=== PATIENT | female | born 1960 | race African-American/Black ===

== ENCOUNTER 2019-10-12 05:52 | Day surgery (SDC) | payer OTHER ==
[2019-10-12] MEDS ORDERED: DEXAMETHASONE SODIUM PHOSPHATE 20 MG in SODIUM CHLORIDE 50 ML IVPB ONE (10:00)
[2019-10-12] MEDS ORDERED: PALONOSETRON HCL 0.25 MG/5 ML VIAL IVPUSH ONE (10:00)
[2019-10-12] MEDS ORDERED: WATER IV ONE (10:30)
[2019-10-12] MEDS ORDERED: OXALIPLATIN IV ONE (10:30)
[2019-10-12] MEDS ORDERED: DEXTROSE 5% IV ONE (10:30)
[2019-10-12 11:09] LABS: BASO % 0.4 % (0-2.0); EOS % 2.5 % (0-4.5); HEMATOCRIT 34.8 % (32.4-45.2); HEMOGLOBIN 11.1 GM/dL (10.7-15.3); LYMPH % 27.7 % (8-40); MCH 26.9 pg (25.7-33.7); MEAN PLT VOLUME 8.2 fl (7.5-11.1); MONO % 14.3 % (3.8-10.2); NEUT % 55.1 % (42.8-82.8); PLATELET COUNT 324 K/MM3 (134-434); RBC 4.14 M/mm3 (3.60-5.2); RDW 18.8 % (11.6-15.6); WHITE BLOOD COUNT 5.3 K/mm3 (4.0-10.0)
[2019-10-12 12:40] LABS: BLOOD UREA NITROGEN 7.8 mg/dL (7-18); CALCIUM 9.6 mg/dL (8.5-10.1); CREATININE 0.6 mg/dL (0.55-1.3); POTASSIUM 3.7 mmol/L (3.5-5.1)
[2019-10-12 12:42] LABS: MAGNESIUM 2.2 mg/dL (1.8-2.4)
[2019-10-12 13:39] LABS: ALBUMIN 3.3 g/dl (3.4-5.0); BILIRUBIN,DIRECT 0.1 mg/dL (0.0-0.2); BILIRUBIN,TOTAL 0.4 mg/dL (0.2-1); TOT PROT 7.7 g/dl (6.4-8.2)
[2019-10-12 16:10] VITALS: TEMP 97.8
[2019-10-12 16:13] VITALS: BP 152/81; PULSE 80
== END 2019-10-12 16:13 | disposition home or self-care (01) ==
LOC: JRADIR 05:52
PROVIDERS: ATTEND Nurse Practitioner Family
PROC: 02HV33Z Insertion of Infusion Device into Superior Vena Cava, Percutaneous Approach (ICD-10-PCS; principal; 2019-10-12)
PROC: B518ZZA Fluoroscopy of Superior Vena Cava, Guidance (ICD-10-PCS; 2019-10-12)
PROC: 3E04305 Introduction of Other Antineoplastic into Central Vein, Percutaneous Approach (ICD-10-PCS; 2019-10-12)
DX: Z51.11 Encounter for antineoplastic chemotherapy (principal); C18.9 Malignant neoplasm of colon, unspecified
CPT/HCPCS: 36415; 36569; 80048; 80076; 82977; 83735; 85025; J2469; J9263

== ENCOUNTER 2019-11-09 07:14 | Day surgery (SDC) | payer OTHER ==
[2019-11-09] MEDS ORDERED: amLODIPine BESYLATE 5 MG TABLET (FP) PO ONE (10:08)
[2019-11-09] MEDS ORDERED: PALONOSETRON HCL 0.25 MG/5 ML VIAL IVPUSH ONE (13:00)
[2019-11-09] MEDS ORDERED: DEXAMETHASONE INJECTION 20 MG in SODIUM CHLORIDE 50 ML IVPB ONE (13:00)
[2019-11-09] MEDS ORDERED: WATER IV ONE (13:30)
[2019-11-09] MEDS ORDERED: DEXTROSE 5% IV ONE (13:30)
[2019-11-09] MEDS ORDERED: OXALIPLATIN IV ONE (13:30)
[2019-11-09 13:34] LABS: BASO % 0.4 % (0-2.0); EOS % 2.3 % (0-4.5); HEMATOCRIT 34.1 % (32.4-45.2); HEMOGLOBIN 10.9 GM/dL (10.7-15.3); LYMPH % 37.1 % (8-40); MCH 26.8 pg (25.7-33.7); MEAN CELL VOLUME 83.8 fl (80-96); MEAN PLT VOLUME 8.4 fl (7.5-11.1); MONO % 12.2 % (3.8-10.2); PLATELET COUNT 306 K/MM3 (134-434); RBC 4.07 M/mm3 (3.60-5.2); RDW 19.1 % (11.6-15.6); WHITE BLOOD COUNT 5.9 K/mm3 (4.0-10.0)
[2019-11-09 14:15] LABS: BLOOD UREA NITROGEN 7.4 mg/dL (7-18); CALCIUM 9.3 mg/dL (8.5-10.1); POTASSIUM 3.7 mmol/L (3.5-5.1)
[2019-11-09 14:18] LABS: ALBUMIN 3.1 g/dl (3.4-5.0); BILIRUBIN,DIRECT 0.1 mg/dL (0.0-0.2); MAGNESIUM 2.2 mg/dL (1.8-2.4)
[2019-11-09 14:20] LABS: BILIRUBIN,TOTAL 0.4 mg/dL (0.2-1); CREATININE 0.5 mg/dL (0.55-1.3); TOT PROT 7.6 g/dl (6.4-8.2)
[2019-11-09 17:10] VITALS: TEMP 98
[2019-11-09 17:12] VITALS: BP 163/97; PULSE 78
== END 2019-11-09 17:14 | disposition home or self-care (01) ==
LOC: JRADIR 07:14
PROVIDERS: ATTEND Nurse Practitioner Family
PROC: 05HY33Z Insertion of Infusion Device into Upper Vein, Percutaneous Approach (ICD-10-PCS; principal; 2019-11-09)
DX: C18.6 Malignant neoplasm of descending colon (principal); C78.7 Secondary malignant neoplasm of liver and intrahepatic bile duct
CPT/HCPCS: 36415; 36569; 36573; 77001-TC-FY; 80048; 80076; 83735; 85025; C1751; J1100; J2469; J9263

== ENCOUNTER 2019-11-30 07:29 | Day surgery (SDC) | payer OTHER ==
[2019-11-30] MEDS ORDERED: PALONOSETRON HCL 0.25 MG/5 ML VIAL IVPUSH ONE (10:00)
[2019-11-30] MEDS ORDERED: DEXAMETHASONE SODIUM PHOSPHATE 20 MG in SODIUM CHLORIDE 50 ML IVPB ONE (10:00)
[2019-11-30] MEDS ORDERED: DEXTROSE 5% IV ONE ×2 (10:30→13:30)
[2019-11-30] MEDS ORDERED: WATER IV ONE ×2 (10:30→13:30)
[2019-11-30] MEDS ORDERED: OXALIPLATIN IV ONE ×2 (10:30→13:30)
[2019-11-30 10:51] LABS: BASO % 0.5 % (0-2.0); EOS % 1.9 % (0-4.5); HEMATOCRIT 33.9 % (32.4-45.2); HEMOGLOBIN 10.9 GM/dL (10.7-15.3); LYMPH % 30.4 % (8-40); MCH 27.4 pg (25.7-33.7); MCHC 32.1 g/dl (32.0-36.0); MEAN CELL VOLUME 85.2 fl (80-96); MEAN PLT VOLUME 8.7 fl (7.5-11.1); MONO % 18.8 % (3.8-10.2); NEUT % 48.4 % (42.8-82.8); PLATELET COUNT 218 K/MM3 (134-434); RBC 3.98 M/mm3 (3.60-5.2); WHITE BLOOD COUNT 5.9 K/mm3 (4.0-10.0)
[2019-11-30] MEDS ORDERED: amLODIPine BESYLATE 5 MG TABLET (FP) PO ONE ×2 (11:00→11:15)
[2019-11-30 11:12] LABS: ALBUMIN 3.2 g/dl (3.4-5.0); BILIRUBIN,DIRECT 0.1 mg/dL (0.0-0.2); BILIRUBIN,TOTAL 0.5 mg/dL (0.2-1); BLOOD UREA NITROGEN 8.7 mg/dL (7-18); CALCIUM 9.1 mg/dL (8.5-10.1); CREATININE 0.7 mg/dL (0.55-1.3); MAGNESIUM 2.3 mg/dL (1.8-2.4); POTASSIUM 4.1 mmol/L (3.5-5.1); TOT PROT 8.4 g/dl (6.4-8.2)
[2019-11-30 17:19] VITALS: BP 162/93; PULSE 74; TEMP 98.7
== END 2019-11-30 16:15 | disposition home or self-care (01) ==
LOC: JRADIR 07:29
PROVIDERS: ATTEND Nurse Practitioner Family
PROC: 02HV33Z Insertion of Infusion Device into Superior Vena Cava, Percutaneous Approach (ICD-10-PCS; principal; 2019-11-30)
PROC: B518ZZA Fluoroscopy of Superior Vena Cava, Guidance (ICD-10-PCS; 2019-11-30)
PROC: 3E04305 Introduction of Other Antineoplastic into Central Vein, Percutaneous Approach (ICD-10-PCS; 2019-11-30)
DX: Z51.11 Encounter for antineoplastic chemotherapy (principal); C18.9 Malignant neoplasm of colon, unspecified
CPT/HCPCS: 36415; 36569; 77001-TC-FY; 80048; 80076; 82378; 83735; 85025; C1751; J2469; J9263

== ENCOUNTER 2019-12-21 07:13 | Day surgery (SDC) | payer OTHER ==
[2019-12-21] MEDS ORDERED: DEXAMETHASONE SODIUM PHOSPHATE 20 MG in SODIUM CHLORIDE 50 ML IVPB ONE (10:00)
[2019-12-21] MEDS ORDERED: PALONOSETRON HCL 0.25 MG/5 ML VIAL IVPUSH ONE (10:00)
[2019-12-21] MEDS ORDERED: DEXTROSE 5% IV ONE (10:30)
[2019-12-21] MEDS ORDERED: WATER IV ONE (10:30)
[2019-12-21] MEDS ORDERED: OXALIPLATIN IV ONE (10:30)
[2019-12-21 11:39] LABS: BASO % 0.4 % (0-2.0); EOS % 1.4 % (0-4.5); HEMATOCRIT 35.2 % (32.4-45.2); HEMOGLOBIN 11.6 GM/dL (10.7-15.3); LYMPH % 29.3 % (8-40); MCH 28.8 pg (25.7-33.7); MEAN CELL VOLUME 87.4 fl (80-96); MEAN PLT VOLUME 8.8 fl (7.5-11.1); MONO % 15.1 % (3.8-10.2); NEUT % 53.8 % (42.8-82.8); PLATELET COUNT 255 K/MM3 (134-434); RBC 4.03 M/mm3 (3.60-5.2); RDW 19.1 % (11.6-15.6)
[2019-12-21 12:03] LABS: ALBUMIN 3.4 g/dl (3.4-5.0); BILIRUBIN,DIRECT 0.2 mg/dL (0.0-0.2); BILIRUBIN,TOTAL 0.7 mg/dL (0.2-1); BLOOD UREA NITROGEN 8.5 mg/dL (7-18); CALCIUM 9.2 mg/dL (8.5-10.1); CREATININE 0.7 mg/dL (0.55-1.3); MAGNESIUM 2.1 mg/dL (1.8-2.4); POTASSIUM 4.5 mmol/L (3.5-5.1); TOT PROT 8.7 g/dl (6.4-8.2)
[2019-12-21 17:32] VITALS: PULSE 78; TEMP 98.4
[2019-12-21 17:37] VITALS: BP 130/80
== END 2019-12-21 15:50 | disposition home or self-care (01) ==
LOC: JRADIR 07:13
PROVIDERS: ATTEND Internal Medicine Hematology & Oncology
DX: Z51.11 Encounter for antineoplastic chemotherapy (principal); C18.9 Malignant neoplasm of colon, unspecified
CPT/HCPCS: 36571; 77001; 96367; 96413; 96415; C1751; 36415; 36569; 80048; 80076; 83735; 85025; 87517; J2469; J9263

== ENCOUNTER 2020-01-16 06:52 | Day surgery (SDC) | payer OTHER ==
[2020-01-16] MEDS ORDERED: DEXAMETHASONE SODIUM PHOSPHATE 20 MG in SODIUM CHLORIDE 50 ML IVPB ONE (09:30)
[2020-01-16] MEDS ORDERED: PALONOSETRON HCL 0.25 MG/5 ML VIAL IVPUSH ONE (09:30)
[2020-01-16] MEDS ORDERED: DEXTROSE 5% IV ONE (10:00)
[2020-01-16] MEDS ORDERED: WATER IV ONE (10:00)
[2020-01-16] MEDS ORDERED: OXALIPLATIN IV ONE (10:00)
[2020-01-16 11:08] LABS: BASO % 0.6 % (0-2.0); EOS % 1.5 % (0-4.5); HEMATOCRIT 37.8 % (32.4-45.2); HEMOGLOBIN 12.4 GM/dL (10.7-15.3); LYMPH % 35.7 % (8-40); MCHC 32.8 g/dl (32.0-36.0); MEAN CELL VOLUME 88.6 fl (80-96); MEAN PLT VOLUME 8.8 fl (7.5-11.1); MONO % 16.1 % (3.8-10.2); NEUT % 46.1 % (42.8-82.8); PLATELET COUNT 205 K/MM3 (134-434); RBC 4.27 M/mm3 (3.60-5.2); RDW 19.5 % (11.6-15.6)
[2020-01-16 11:10] LABS: ALBUMIN 3.5 g/dl (3.4-5.0); BILIRUBIN,DIRECT 0.1 mg/dL (0.0-0.2); BILIRUBIN,TOTAL 0.5 mg/dL (0.2-1); BLOOD UREA NITROGEN 11.1 mg/dL (7-18); CALCIUM 9.3 mg/dL (8.5-10.1); CREATININE 0.8 mg/dL (0.55-1.3); MAGNESIUM 2.2 mg/dL (1.8-2.4); POTASSIUM 3.5 mmol/L (3.5-5.1); TOT PROT 9.2 g/dl (6.4-8.2)
[2020-01-16 17:09] VITALS: TEMP 98.2
[2020-01-16 17:17] VITALS: BP 162/84; PULSE 82
== END 2020-01-16 15:30 | disposition home or self-care (01) ==
LOC: JRADIR 06:52
PROVIDERS: ATTEND Internal Medicine Hematology & Oncology
PROC: 02HV33Z Insertion of Infusion Device into Superior Vena Cava, Percutaneous Approach (ICD-10-PCS; principal; 2020-01-16)
PROC: B518ZZA Fluoroscopy of Superior Vena Cava, Guidance (ICD-10-PCS; 2020-01-16)
PROC: 3E04305 Introduction of Other Antineoplastic into Central Vein, Percutaneous Approach (ICD-10-PCS; 2020-01-16)
DX: Z51.11 Encounter for antineoplastic chemotherapy (principal); C18.9 Malignant neoplasm of colon, unspecified
CPT/HCPCS: 36415; 36569; 36573; 77001-TC-FY; 80048; 80076; 82378; 83735; 85025; 96411; 96413; 96415; C1751; J2469; J9263

== ENCOUNTER 2020-02-06 07:17 | Day surgery (SDC) | payer OTHER ==
[2020-02-06] MEDS ORDERED: PALONOSETRON HCL 0.25 MG/5 ML VIAL IVPUSH ONE (10:00)
[2020-02-06] MEDS ORDERED: DEXAMETHASONE SODIUM PHOSPHATE 20 MG in SODIUM CHLORIDE 50 ML IVPB ONE (10:00)
[2020-02-06] MEDS ORDERED: amLODIPine BESYLATE 5 MG TABLET (FP) PO ONE (10:19)
[2020-02-06] MEDS ORDERED: WATER IV ONE (10:30)
[2020-02-06] MEDS ORDERED: DEXTROSE 5% IV ONE (10:30)
[2020-02-06] MEDS ORDERED: OXALIPLATIN IV ONE (10:30)
[2020-02-06 11:17] LABS: BASO % 0.3 % (0-2.0); EOS % 1.3 % (0-4.5); HEMATOCRIT 34.8 % (32.4-45.2); HEMOGLOBIN 11.6 GM/dL (10.7-15.3); LYMPH % 36.6 % (8-40); MCH 30.2 pg (25.7-33.7); MCHC 33.5 g/dl (32.0-36.0); MEAN CELL VOLUME 90.3 fl (80-96); MEAN PLT VOLUME 8.6 fl (7.5-11.1); MONO % 16.6 % (3.8-10.2); NEUT % 45.2 % (42.8-82.8); PLATELET COUNT 227 K/MM3 (134-434); RBC 3.85 M/mm3 (3.60-5.2); WHITE BLOOD COUNT 6.4 K/mm3 (4.0-10.0)
[2020-02-06 11:44] LABS: ALBUMIN 3.3 g/dl (3.4-5.0); BILIRUBIN,DIRECT 0.1 mg/dL (0.0-0.2); BILIRUBIN,TOTAL 0.6 mg/dL (0.2-1); BLOOD UREA NITROGEN 9.3 mg/dL (7-18); CALCIUM 8.9 mg/dL (8.5-10.1); CREATININE 0.7 mg/dL (0.55-1.3); MAGNESIUM 1.9 mg/dL (1.8-2.4); TOT PROT 9.2 g/dl (6.4-8.2)
[2020-02-06 17:07] VITALS: BP 167/68; PULSE 82; TEMP 98
== END 2020-02-06 15:30 | disposition home or self-care (01) ==
LOC: JRADIR 07:17 → JONCCHEMO 07:17 → JRADIR 15:30
PROVIDERS: ATTEND Internal Medicine Hematology & Oncology
PROC: 02HV33Z Insertion of Infusion Device into Superior Vena Cava, Percutaneous Approach (ICD-10-PCS; principal; 2020-02-06)
PROC: B518ZZA Fluoroscopy of Superior Vena Cava, Guidance (ICD-10-PCS; 2020-02-06)
PROC: 3E04305 Introduction of Other Antineoplastic into Central Vein, Percutaneous Approach (ICD-10-PCS; 2020-02-06)
DX: C18.9 Malignant neoplasm of colon, unspecified (principal)
CPT/HCPCS: 36415; 36569; 36573; 77001-TC-FY; 80048; 80076; 82378; 83735; 85025; 96367; 96375; 96413; 96415; C1751; J2469; J9263

== ENCOUNTER 2021-06-02 05:00 | Day surgery (SDC) | payer OTHER ==
[2021-05-29 12:38] VITALS: BMI 37.9
[2021-06-02 12:35] VITALS: TEMP 97.3
[2021-06-02 15:25] VITALS: BP 130/80; PULSE 72
== END 2021-06-02 16:20 | disposition home or self-care (01) ==
LOC: JRADIR 05:00
PROVIDERS: ATTEND Internal Medicine Hematology & Oncology
PROC: 0BBC3ZX Excision of Right Upper Lung Lobe, Percutaneous Approach, Diagnostic (ICD-10-PCS; principal; 2021-06-02)
DX: R91.8 Other nonspecific abnormal finding of lung field (principal); Z85.3 Personal history of malignant neoplasm of breast; Z85.038 Personal history of other malignant neoplasm of large intestine
CPT/HCPCS: 32408; 71045-TC-FY; 77012-TC; 88305-TC; 88341-TC; 88342-TC

== ENCOUNTER 2021-07-07 04:11 | Inpatient (IN) | payer OTHER ==
[2021-07-04 11:34] VITALS: BMI 37.9
[2021-07-07] MEDS ORDERED: LIDOCAINE HCL 1%, 10 MG/ML (20ML VIAL) ONE (07:10)
[2021-07-07] MEDS ORDERED: BUPIVACAINE HCL/PF 0.5% (5MG/ML) 10 ML VIAL ONE (07:11)
[2021-07-07] MEDS ORDERED: DEXMEDETOMIDINE HCL 200 MCG/2 ML IVPB ONE (07:47)
[2021-07-07] MEDS ORDERED: SODIUM CHLORIDE 0.9% P/F 10 ML VIAL IJ ONE (07:48)
[2021-07-07] MEDS ORDERED: BUPIVACAINE HCL/PF 0.25% (2.5MG/ML) 10 ML VIAL ONE ×2 (07:49→10:02)
[2021-07-07] MEDS ORDERED: BUPIVACAINE LIPOSOME/PF (EXPAREL) 266 MG/20 ML VIAL ONE (07:57)
[2021-07-07] MEDS ORDERED: MIDAZOLAM HCL 2 MG/2 ML SINGLE DOSE VIAL ONE (07:58)
[2021-07-07] MEDS ORDERED: PROPOFOL 20 ML ONE ×5 (08:02→10:11)
[2021-07-07] MEDS ORDERED: SUCCINYLCHOLINE CHLORIDE 200 MG/10 ML SYRINGE ONE (08:02)
[2021-07-07] MEDS ORDERED: ROCURONIUM BROMIDE 50 MG/5 ML SYRINGE ONE (08:02)
[2021-07-07] MEDS ORDERED: GLYCOPYRROLATE 0.2 MG/1 ML VIAL ONE ×2 (08:02→10:12)
[2021-07-07] MEDS ORDERED: ceFAZolin SODIUM 1 GM VIAL ONE (08:36)
[2021-07-07] MEDS ORDERED: ceFAZolin SODIUM 1 GM VIAL IVPB ONE (09:00)
[2021-07-07] MEDS ORDERED: BUPIVACAINE HCL/PF 0.25% (2.5MG/ML) 10 ML VIAL IJ ONE ×2 (09:45)
[2021-07-07] MEDS ORDERED: BUPIVACAINE LIPOSOME/PF (EXPAREL) 266 MG/20 ML VIAL NR ONE (09:46)
[2021-07-07] MEDS ORDERED: ONDANSETRON 4 MG/2 ML VIAL ONE (09:51)
[2021-07-07] MEDS ORDERED: NEOSTIGMINE METHYLSULFATE 0.5 MG/1 ML - 10 ML MDV ONE (10:12)
[2021-07-07] MEDS ORDERED: ARIPiprazole 2 MG TABLET PO SCH (12:15)
[2021-07-07] MEDS ORDERED: ALBUTEROL SO4 HFA INHALER IH PRN (12:15)
[2021-07-07] MEDS ORDERED: METOPROLOL TARTRATE 5 MG/5 ML VIAL IVPUSH PRN (12:18)
[2021-07-07] MEDS ORDERED: oxyCODONE HCL 5 MG TABLET PO PRN (12:38)
[2021-07-07] MEDS ORDERED: ONDANSETRON 4 MG/2 ML VIAL IVPUSH PRN (12:39)
[2021-07-07] MEDS: HEPARIN NA (PORCINE) 5,000 UNITS/ML 1ML VIAL SQ SCH ×2 (17:30→21:28)
[2021-07-07] MEDS: oxyCODONE HCL 5 MG TABLET PO PRN (17:44)
[2021-07-07] MEDS: DOCUSATE SODIUM 100 MG CAPSULE (FP) PO SCH ×2 (19:56→21:28)
[2021-07-07] MEDS: ACETAMINOPHEN 1000 MG/100 ML BAG IVPB SCH (20:13)
[2021-07-07] MEDS: MUPIROCIN 2% TOPICAL OINTMENT FOR DECOLONIZATION NS SCH (21:29)
[2021-07-07] MEDS ORDERED: SENNOSIDES 8.6MG TABLET (FP) PO SCH (22:00)
[2021-07-07] MEDS ORDERED: CHLORHEXIDINE GLUCONATE 4% CLEANSER FOR DECOLONIZATION TP SCH (22:00)
[2021-07-08] MEDS: ACETAMINOPHEN 1000 MG/100 ML BAG IVPB SCH ×2 (04:42→13:22)
[2021-07-08] MEDS: oxyCODONE HCL 5 MG TABLET PO PRN ×2 (05:06→09:50)
[2021-07-08] MEDS: HEPARIN NA (PORCINE) 5,000 UNITS/ML 1ML VIAL SQ SCH ×2 (06:43→13:23)
[2021-07-08] MEDS: DOCUSATE SODIUM 100 MG CAPSULE (FP) PO SCH ×2 (06:43→13:23)
[2021-07-08 07:03] LABS: BASO % 0.2 % (0-2.0); HEMATOCRIT 35.9 % (32.4-45.2); LYMPH % 11.3 % (8-40); MCH 29.2 pg (25.7-33.7); MCHC 33.3 g/dl (32.0-36.0); MEAN CELL VOLUME 87.5 fl (80-96); MEAN PLT VOLUME 8.2 fl (7.5-11.1); MONO % 8.2 % (3.8-10.2); NEUT % 80.3 % (42.8-82.8); PLATELET COUNT 313 10^3/uL (134-434); RBC 4.11 M/mm3 (3.60-5.2); RDW 15.8 % (11.6-15.6); WHITE BLOOD COUNT 12.8 K/mm3 (4.0-10.0)
[2021-07-08 07:30] LABS: ALBUMIN 3.2 g/dl (3.4-5.0); BLOOD UREA NITROGEN 12.3 mg/dL (7-18); CALCIUM 9.1 mg/dL (8.5-10.1); MAGNESIUM 2.2 mg/dL (1.8-2.4)
[2021-07-08 07:33] LABS: CREATININE 0.7 mg/dL (0.55-1.3); PHOSPHOROUS 3.6 mg/dL (2.5-4.9)
[2021-07-08 07:35] LABS: BILIRUBIN,TOTAL 0.7 mg/dL (0.2-1); TOT PROT 7.4 g/dl (6.4-8.2)
[2021-07-08] MEDS: MUPIROCIN 2% TOPICAL OINTMENT FOR DECOLONIZATION NS SCH (09:49)
[2021-07-08] MEDS ORDERED: CHLORTHALIDONE 25 MG TABLET PO SCH (10:00)
[2021-07-08] MEDS ORDERED: amLODIPine BESYLATE 5 MG TABLET (FP) PO SCH (10:00)
[2021-07-08] MEDS ORDERED: LOSARTAN POTASSIUM 50 MG TABLET PO SCH (10:00)
[2021-07-08] MEDS ORDERED: CHOLECALCIFEROL (VIT D3) 1,000 UNIT (25 MCG) TABLET PO SCH (10:00)
[2021-07-08] MEDS ORDERED: ATENOLOL 50 MG TABLET (FP) PO SCH (10:00)
[2021-07-08 14:51] VITALS: TEMP 98.6
[2021-07-08 20:15] VITALS: BP 125/69; PULSE 74
== END 2021-07-08 20:28 | disposition home or self-care (01) | DRG 120 ==
LOC: J2C 04:11 → JICU 14:05
PROVIDERS: ADMIT Student in an Organized Health Care Education/Training Program; ATTEND Student in an Organized Health Care Education/Training Program
PROC: 3E0T3BZ Introduction of Anesthetic Agent into Peripheral Nerves and Plexi, Percutaneous Approach (ICD-10-PCS; 2021-07-07)
PROC: 0JH63XZ Insertion of Tunneled Vascular Access Device into Chest Subcutaneous Tissue and Fascia, Percutaneous Approach (ICD-10-PCS; 2021-07-07)
PROC: 0W9940Z Drainage of Right Pleural Cavity with Drainage Device, Percutaneous Endoscopic Approach (ICD-10-PCS; 2021-07-07)
PROC: 05HN33Z Insertion of Infusion Device into Left Internal Jugular Vein, Percutaneous Approach (ICD-10-PCS; 2021-07-07)
PROC: 0BBC4ZZ Excision of Right Upper Lung Lobe, Percutaneous Endoscopic Approach (ICD-10-PCS; principal; 2021-07-07 08:00)
PROC: 0BBF4ZZ Excision of Right Lower Lung Lobe, Percutaneous Endoscopic Approach (ICD-10-PCS; 2021-07-07 08:00)
PROC: 0WP9X0Z Removal of Drainage Device from Right Pleural Cavity, External Approach (ICD-10-PCS; 2021-07-08)
DX: C78.01 Secondary malignant neoplasm of right lung (principal); C18.9 Malignant neoplasm of colon, unspecified; I10 Essential (primary) hypertension; F32.A Depression, unspecified
CPT/HCPCS: 36415; 71045-TC-FY; 76000-TC-FY; 80053; 83735; 84100; 85025; 86850; 86900; 86901; 88307-TC; 88331-TC; 94010; 94760; 97116-GP; 97162-GP; J1644

== ENCOUNTER 2021-08-04 07:13 | Day surgery (SDC) | payer OTHER ==
[2021-08-04] MEDS ORDERED: SODIUM CHLORIDE 250 ML IV ONE (09:00)
[2021-08-04 09:06] LABS: BASO % 0.7 % (0-2.0); EOS % 3.1 % (0-4.5); HEMOGLOBIN 12.9 GM/dL (10.7-15.3); LYMPH % 30.7 % (8-40); MCH 30.4 pg (25.7-33.7); MEAN CELL VOLUME 89.3 fl (80-96); MEAN PLT VOLUME 8.5 fl (7.5-11.1); MONO % 9.4 % (3.8-10.2); NEUT % 56.1 % (42.8-82.8); RBC 4.26 M/mm3 (3.60-5.2); RDW 15.8 % (11.6-15.6); WHITE BLOOD COUNT 7.6 K/mm3 (4.0-10.0)
[2021-08-04 09:07] LABS: PLATELET COUNT 215 10^3/uL (134-434)
[2021-08-04 09:21] LABS: CALCIUM 9.2 mg/dL (8.5-10.1)
[2021-08-04 09:22] LABS: ALBUMIN 3.2 g/dl (3.4-5.0); BLOOD UREA NITROGEN 14.5 mg/dL (7-18); MAGNESIUM 2.2 mg/dL (1.8-2.4)
[2021-08-04 09:25] LABS: BILIRUBIN,DIRECT 0.1 mg/dL (0.0-0.2); CREATININE 0.7 mg/dL (0.55-1.3)
[2021-08-04 09:26] LABS: BILIRUBIN,TOTAL 0.9 mg/dL (0.2-1)
[2021-08-04 09:27] LABS: TOT PROT 7.9 g/dl (6.4-8.2)
[2021-08-04] MEDS ORDERED: PALONOSETRON HCL 0.25 MG/5 ML VIAL IVPUSH ONE (09:30)
[2021-08-04] MEDS ORDERED: DEXAMETHASONE SODIUM PHOSPHATE 10 MG in SODIUM CHLORIDE 50 ML IVPB ONE (09:30)
[2021-08-04] MEDS ORDERED: ATROPINE SO4 0.4 MG/1 ML VIAL IVPUSH ONE (09:30)
[2021-08-04 09:49] LABS: PLATELET ESTIMATE ADEQUATE
[2021-08-04] MEDS ORDERED: LEUCOVORIN INJECTION - 856 MG in DEXTROSE 5%-WATER - 250 ML IVPB ONE (10:00)
[2021-08-04] MEDS ORDERED: WATER IVPB ONE (10:00)
[2021-08-04] MEDS ORDERED: DEXTROSE 5% IVPB ONE (10:00)
[2021-08-04] MEDS ORDERED: IRINOTECAN HCL IVPB ONE (10:00)
[2021-08-04] MEDS ORDERED: FLUOROURACIL 2,500 MG/50 ML VIAL IVPUSH ONE (11:30)
[2021-08-04] MEDS ORDERED: SODIUM CHLORIDE CP ONE (11:45)
[2021-08-04] MEDS ORDERED: FLUOROURACIL CP ONE (11:45)
[2021-08-04 15:41] VITALS: BP 157/80; PULSE 72; TEMP 98.8
[2021-08-04] MEDS ORDERED: PORTA CATH FLUSH 10 ML IVPUSH PRN (16:22)
== END 2021-08-04 14:15 | disposition home or self-care (01) ==
LOC: JONCCHEMO 07:13
PROVIDERS: ATTEND Internal Medicine Hematology & Oncology
DX: Z51.11 Encounter for antineoplastic chemotherapy (principal); C18.9 Malignant neoplasm of colon, unspecified
CPT/HCPCS: 36415; 80048; 80076; 82378; 83735; 85025; 86704; 86705; 87340; 87517; 96367; 96375; 96413; G0498; J2469; J9206

== ENCOUNTER 2021-08-06 07:58 | Day surgery (SDC) | payer OTHER ==
[2021-08-06] MEDS ORDERED: D5-1/2NS+40 MEQ KCL - 20 MEQ/500 ML INFUS.BAG IV ONE (10:00)
[2021-08-06 17:42] VITALS: BP 134/72; PULSE 67; TEMP 98.8
[2021-08-06] MEDS ORDERED: PORTA CATH FLUSH 10 ML IVPUSH PRN (17:42)
== END 2021-08-06 14:30 | disposition home or self-care (01) ==
LOC: JONCCHEMO 07:58
PROVIDERS: ATTEND Internal Medicine Hematology & Oncology
PROC: 3E0437Z Introduction of Electrolytic and Water Balance Substance into Central Vein, Percutaneous Approach (ICD-10-PCS; principal; 2021-08-06)
DX: C18.9 Malignant neoplasm of colon, unspecified (principal); Z76.89 Persons encountering health services in other specified circumstances
CPT/HCPCS: 96360; 96361

== ENCOUNTER 2021-08-18 06:34 | Day surgery (SDC) | payer OTHER ==
[2021-08-18 08:42] LABS: BASO % 0.7 % (0-2.0); EOS % 2.3 % (0-4.5); HEMATOCRIT 37.1 % (32.4-45.2); HEMOGLOBIN 12.5 GM/dL (10.7-15.3); LYMPH % 34.2 % (8-40); MCH 29.8 pg (25.7-33.7); MCHC 33.8 g/dl (32.0-36.0); MEAN CELL VOLUME 88.1 fl (80-96); MEAN PLT VOLUME 7.6 fl (7.5-11.1); MONO % 10.5 % (3.8-10.2); NEUT % 52.3 % (42.8-82.8); PLATELET COUNT 261 10^3/uL (134-434); RBC 4.21 M/mm3 (3.60-5.2); RDW 15.4 % (11.6-15.6); WHITE BLOOD COUNT 5.3 K/mm3 (4.0-10.0)
[2021-08-18 08:59] LABS: CALCIUM 9.3 mg/dL (8.5-10.1)
[2021-08-18 09:00] LABS: ALBUMIN 3.4 g/dl (3.4-5.0); MAGNESIUM 2.3 mg/dL (1.8-2.4)
[2021-08-18] MEDS ORDERED: SODIUM CHLORIDE 250 ML IV ONE (09:00)
[2021-08-18 09:03] LABS: BILIRUBIN,DIRECT 0.1 mg/dL (0.0-0.2); CREATININE 0.7 mg/dL (0.55-1.3)
[2021-08-18 09:05] LABS: BILIRUBIN,TOTAL 0.4 mg/dL (0.2-1); TOT PROT 7.7 g/dl (6.4-8.2)
[2021-08-18] MEDS ORDERED: DEXAMETHASONE SODIUM PHOSPHATE 10 MG in SODIUM CHLORIDE 50 ML IVPB ONE (09:30)
[2021-08-18] MEDS ORDERED: ATROPINE SO4 0.4 MG/1 ML VIAL IVPUSH ONE (09:30)
[2021-08-18] MEDS ORDERED: PALONOSETRON HCL 0.25 MG/5 ML VIAL IVPUSH ONE (09:30)
[2021-08-18] MEDS ORDERED: LEUCOVORIN INJECTION - 852 MG in DEXTROSE 5%-WATER - 250 ML IVPB ONE (10:00)
[2021-08-18] MEDS ORDERED: IRINOTECAN HCL 380 MG in DEXTROSE 5%-WATER - 500 ML IVPB ONE (10:00)
[2021-08-18] MEDS ORDERED: LIDOCAINE 2.5%/PRILOCAINE 2.5% 30 GRAM TUBE TP ONE (10:02)
[2021-08-18] MEDS ORDERED: FLUOROURACIL 2,500 MG/50 ML VIAL IVPUSH ONE (11:30)
[2021-08-18] MEDS ORDERED: FLUOROURACIL 5,100 MG in SODIUM CHLORIDE 3.8 ML CP ONE (11:45)
[2021-08-18 18:07] VITALS: TEMP 99
[2021-08-18 18:16] VITALS: BP 147/78; PULSE 68
[2021-08-18] MEDS ORDERED: PORTA CATH FLUSH 10 ML IVPUSH PRN (18:16)
== END 2021-08-18 13:45 | disposition home or self-care (01) ==
LOC: JONCCHEMO 06:34
PROVIDERS: ATTEND Internal Medicine Hematology & Oncology
PROC: 3E04305 Introduction of Other Antineoplastic into Central Vein, Percutaneous Approach (ICD-10-PCS; principal; 2021-08-18)
PROC: 3E043GC Introduction of Other Therapeutic Substance into Central Vein, Percutaneous Approach (ICD-10-PCS; 2021-08-18)
PROC: 3E0437Z Introduction of Electrolytic and Water Balance Substance into Central Vein, Percutaneous Approach (ICD-10-PCS; 2021-08-18)
DX: Z51.11 Encounter for antineoplastic chemotherapy (principal); C18.9 Malignant neoplasm of colon, unspecified
CPT/HCPCS: 36415; 80048; 80076; 83735; 85025; 96368; 96375; 96413; G0498; J2469; J9206

== ENCOUNTER 2021-08-20 06:18 | Day surgery (SDC) | payer OTHER ==
[~2021-08-20 06:18] MED LIST: LIDOCAINE 2.5%/PRILOCAINE 2.5% 30 GRAM TUBE TP ONE
[2021-08-20] MEDS ORDERED: D5-1/2NS+40 MEQ KCL - 20 MEQ/500 ML INFUS.BAG IV ONE (10:00)
[2021-08-20 15:01] VITALS: BP 154/76; PULSE 69; TEMP 98.9
[2021-08-20] MEDS ORDERED: PORTA CATH FLUSH 10 ML IVPUSH PRN (15:01)
== END 2021-08-20 12:10 | disposition home or self-care (01) ==
LOC: JONCNONCHE 06:18
PROVIDERS: ATTEND Internal Medicine Hematology & Oncology
PROC: 3E0437Z Introduction of Electrolytic and Water Balance Substance into Central Vein, Percutaneous Approach (ICD-10-PCS; principal; 2021-08-20)
DX: C18.9 Malignant neoplasm of colon, unspecified (principal); Z76.89 Persons encountering health services in other specified circumstances
CPT/HCPCS: 96360; 96361

== ENCOUNTER 2021-09-01 07:10 | Day surgery (SDC) | payer OTHER ==
[2021-09-01 08:52] LABS: BASO % 0.4 % (0-2.0); EOS % 1.6 % (0-4.5); HEMATOCRIT 37.3 % (32.4-45.2); HEMOGLOBIN 12.6 GM/dL (10.7-15.3); LYMPH % 34.1 % (8-40); MCH 29.9 pg (25.7-33.7); MCHC 33.7 g/dl (32.0-36.0); MEAN CELL VOLUME 88.5 fl (80-96); MEAN PLT VOLUME 7.4 fl (7.5-11.1); MONO % 11.6 % (3.8-10.2); NEUT % 52.3 % (42.8-82.8); PLATELET COUNT 230 10^3/uL (134-434); RBC 4.21 M/mm3 (3.60-5.2); RDW 15.7 % (11.6-15.6); WHITE BLOOD COUNT 5.1 K/mm3 (4.0-10.0)
[2021-09-01] MEDS ORDERED: SODIUM CHLORIDE 250 ML IV ONE (09:00)
[2021-09-01 09:14] LABS: ALBUMIN 3.4 g/dl (3.4-5.0); BLOOD UREA NITROGEN 12.5 mg/dL (7-18); CALCIUM 9.3 mg/dL (8.5-10.1); MAGNESIUM 2.1 mg/dL (1.8-2.4)
[2021-09-01 09:17] LABS: BILIRUBIN,DIRECT 0.2 mg/dL (0.0-0.2); CREATININE 0.6 mg/dL (0.55-1.3)
[2021-09-01 09:19] LABS: BILIRUBIN,TOTAL 0.5 mg/dL (0.2-1); TOT PROT 7.6 g/dl (6.4-8.2)
[2021-09-01] MEDS ORDERED: ATROPINE SO4 0.4 MG/1 ML VIAL IVPUSH ONE (09:30)
[2021-09-01] MEDS ORDERED: DEXAMETHASONE SODIUM PHOSPHATE 10 MG in SODIUM CHLORIDE 50 ML IVPB ONE (09:30)
[2021-09-01] MEDS ORDERED: PALONOSETRON HCL 0.25 MG/5 ML VIAL IVPUSH ONE (09:30)
[2021-09-01] MEDS ORDERED: LEUCOVORIN INJECTION - 852 MG in DEXTROSE 5%-WATER - 250 ML IVPB ONE (10:00)
[2021-09-01] MEDS ORDERED: IRINOTECAN HCL 380 MG in DEXTROSE 5%-WATER - 500 ML IVPB ONE (10:00)
[2021-09-01] MEDS ORDERED: FLUOROURACIL 2,500 MG/50 ML VIAL IVPUSH ONE (11:30)
[2021-09-01] MEDS ORDERED: FLUOROURACIL 5,100 MG in SODIUM CHLORIDE 3.8 ML CP ONE (11:45)
[2021-09-01 18:58] VITALS: BP 152/86; PULSE 75; TEMP 99.2
[2021-09-01] MEDS ORDERED: PORTA CATH FLUSH 10 ML IVPUSH PRN (18:58)
== END 2021-09-01 14:30 | disposition home or self-care (01) ==
LOC: JONCCHEMO 07:10
PROVIDERS: ATTEND Internal Medicine Hematology & Oncology
DX: Z51.11 Encounter for antineoplastic chemotherapy (principal); C18.9 Malignant neoplasm of colon, unspecified
CPT/HCPCS: 36415; 80048; 80076; 82378; 83735; 85025; 96367; 96411; 96413; G0498; J2469; J9206

== ENCOUNTER 2021-09-03 06:16 | Day surgery (SDC) | payer OTHER ==
[2021-09-03] MEDS ORDERED: D5-1/2NS+40 MEQ KCL - 20 MEQ/500 ML INFUS.BAG IV ONE (09:00)
[2021-09-03] MEDS ORDERED: PORTA CATH FLUSH 10 ML IVPUSH PRN (13:28)
[2021-09-03 13:29] VITALS: BP 143/72; PULSE 74; TEMP 98.9
== END 2021-09-03 12:40 | disposition home or self-care (01) ==
LOC: JONCCHEMO 06:16
PROVIDERS: ATTEND Internal Medicine Hematology & Oncology
PROC: 3E0437Z Introduction of Electrolytic and Water Balance Substance into Central Vein, Percutaneous Approach (ICD-10-PCS; principal; 2021-09-03)
DX: C18.9 Malignant neoplasm of colon, unspecified (principal); Z76.89 Persons encountering health services in other specified circumstances
CPT/HCPCS: 96360; 96361

== ENCOUNTER 2021-09-15 06:18 | Day surgery (SDC) | payer OTHER ==
[2021-09-15 08:51] LABS: BASO % 0.5 % (0-2.0); EOS % 1.4 % (0-4.5); HEMOGLOBIN 11.9 GM/dL (10.7-15.3); MCH 30.1 pg (25.7-33.7); MCHC 33.9 g/dl (32.0-36.0); MEAN CELL VOLUME 88.6 fl (80-96); MEAN PLT VOLUME 7.3 fl (7.5-11.1); MONO % 12.1 % (3.8-10.2); PLATELET COUNT 197 10^3/uL (134-434); RBC 3.95 M/mm3 (3.60-5.2); RDW 15.9 % (11.6-15.6); WHITE BLOOD COUNT 4.9 K/mm3 (4.0-10.0)
[2021-09-15] MEDS ORDERED: SODIUM CHLORIDE 250 ML IV ONE (09:00)
[2021-09-15 09:14] LABS: CALCIUM 9.1 mg/dL (8.5-10.1)
[2021-09-15 09:15] LABS: ALBUMIN 3.4 g/dl (3.4-5.0); BLOOD UREA NITROGEN 10.7 mg/dL (7-18); MAGNESIUM 2.4 mg/dL (1.8-2.4)
[2021-09-15 09:18] LABS: BILIRUBIN,DIRECT 0.2 mg/dL (0.0-0.2)
[2021-09-15 09:19] LABS: BILIRUBIN,TOTAL 0.8 mg/dL (0.2-1); TOT PROT 7.3 g/dl (6.4-8.2)
[2021-09-15 09:23] LABS: CREATININE 0.7 mg/dL (0.55-1.3)
[2021-09-15] MEDS ORDERED: PALONOSETRON HCL 0.25 MG/5 ML VIAL IVPUSH ONE (09:30)
[2021-09-15] MEDS ORDERED: DEXAMETHASONE SODIUM PHOSPHATE 10 MG in SODIUM CHLORIDE 50 ML IVPB ONE (09:30)
[2021-09-15] MEDS ORDERED: ATROPINE SO4 0.4 MG/1 ML VIAL IVPUSH ONE (09:30)
[2021-09-15] MEDS ORDERED: IRINOTECAN HCL 380 MG in DEXTROSE 5%-WATER - 500 ML IVPB ONE (10:00)
[2021-09-15] MEDS ORDERED: LEUCOVORIN INJECTION - 852 MG in DEXTROSE 5%-WATER - 250 ML IVPB ONE (10:00)
[2021-09-15 10:13] VITALS: TEMP 99
[2021-09-15] MEDS ORDERED: FLUOROURACIL 2,500 MG/50 ML VIAL IVPUSH ONE (11:30)
[2021-09-15] MEDS ORDERED: FLUOROURACIL 5,100 MG in SODIUM CHLORIDE 3.8 ML CP ONE (11:45)
[2021-09-15 15:45] VITALS: BP 136/73; PULSE 66
== END 2021-09-15 14:20 | disposition home or self-care (01) ==
LOC: JONCCHEMO 06:18
PROVIDERS: ATTEND Internal Medicine Hematology & Oncology
DX: Z51.11 Encounter for antineoplastic chemotherapy (principal); C18.9 Malignant neoplasm of colon, unspecified
CPT/HCPCS: 36415; 80048; 80076; 83735; 85025; 96367; 96375; 96411; 96413; G0498; J2469; J9206

== ENCOUNTER 2021-09-17 07:05 | Day surgery (SDC) | payer OTHER ==
[2021-09-17] MEDS ORDERED: D5-1/2NS+40 MEQ KCL - 20 MEQ/500 ML INFUS.BAG IV ONE (10:00)
[2021-09-17 16:50] VITALS: BP 130/70; PULSE 73; TEMP 98.5
[2021-09-17] MEDS ORDERED: PORTA CATH FLUSH 10 ML IVPUSH PRN (16:53)
== END 2021-09-17 12:30 | disposition home or self-care (01) ==
LOC: JONCNONCHE 07:05
PROVIDERS: ATTEND Internal Medicine Hematology & Oncology
PROC: 3E0437Z Introduction of Electrolytic and Water Balance Substance into Central Vein, Percutaneous Approach (ICD-10-PCS; principal; 2021-09-17)
DX: C18.9 Malignant neoplasm of colon, unspecified (principal); Z76.89 Persons encountering health services in other specified circumstances
CPT/HCPCS: 96360; 96361

== ENCOUNTER 2021-09-29 07:46 | Day surgery (SDC) | payer OTHER ==
[2021-09-29] MEDS ORDERED: SODIUM CHLORIDE 250 ML IV ONE (09:00)
[2021-09-29] MEDS ORDERED: DEXAMETHASONE SODIUM PHOSPHATE 10 MG in SODIUM CHLORIDE 50 ML IVPB ONE (09:30)
[2021-09-29] MEDS ORDERED: PALONOSETRON HCL 0.25 MG/5 ML VIAL IVPUSH ONE (09:30)
[2021-09-29] MEDS ORDERED: ATROPINE SO4 0.4 MG/1 ML VIAL IVPUSH ONE (09:30)
[2021-09-29 09:47] LABS: BASO % 0.6 % (0-2.0); EOS % 2.3 % (0-4.5); HEMATOCRIT 34.1 % (32.4-45.2); HEMOGLOBIN 11.2 GM/dL (10.7-15.3); LYMPH % 38.6 % (8-40); MCH 29.4 pg (25.7-33.7); MCHC 32.9 g/dl (32.0-36.0); MEAN CELL VOLUME 89.3 fl (80-96); MEAN PLT VOLUME 7.7 fl (7.5-11.1); MONO % 12.3 % (3.8-10.2); NEUT % 46.2 % (42.8-82.8); PLATELET COUNT 196 10^3/uL (134-434); RBC 3.82 M/mm3 (3.60-5.2); RDW 16.5 % (11.6-15.6); WHITE BLOOD COUNT 4.8 K/mm3 (4.0-10.0)
[2021-09-29] MEDS ORDERED: IRINOTECAN HCL 380 MG in DEXTROSE 5%-WATER - 500 ML IVPB ONE (10:00)
[2021-09-29] MEDS ORDERED: LEUCOVORIN INJECTION - 852 MG in DEXTROSE 5%-WATER - 250 ML IVPB ONE (10:00)
[2021-09-29 10:13] LABS: ALBUMIN 3.3 g/dl (3.4-5.0); BLOOD UREA NITROGEN 12.3 mg/dL (7-18); CALCIUM 9.2 mg/dL (8.5-10.1); MAGNESIUM 2.4 mg/dL (1.8-2.4)
[2021-09-29 10:16] LABS: BILIRUBIN,DIRECT 0.1 mg/dL (0.0-0.2); CREATININE 0.7 mg/dL (0.55-1.3)
[2021-09-29 10:18] LABS: BILIRUBIN,TOTAL 0.5 mg/dL (0.2-1); TOT PROT 7.2 g/dl (6.4-8.2)
[2021-09-29] MEDS ORDERED: FLUOROURACIL 2,500 MG/50 ML VIAL IVPUSH ONE (11:30)
[2021-09-29] MEDS ORDERED: FLUOROURACIL 5,100 MG in SODIUM CHLORIDE 3.8 ML CP ONE (11:45)
[2021-09-29 14:11] VITALS: TEMP 98.6
[2021-09-29 15:15] VITALS: BP 153/83; PULSE 70
[2021-09-29] MEDS ORDERED: PORTA CATH FLUSH 10 ML IVPUSH PRN (15:15)
== END 2021-09-29 14:15 | disposition home or self-care (01) ==
LOC: JONCCHEMO 07:46
PROVIDERS: ATTEND Internal Medicine Hematology & Oncology
DX: Z51.11 Encounter for antineoplastic chemotherapy (principal); C18.9 Malignant neoplasm of colon, unspecified
CPT/HCPCS: 36415; 80048; 80076; 83735; 85025; 96375; 96411; 96413; G0498; J2469; J9206

== ENCOUNTER 2021-10-01 06:45 | Day surgery (SDC) | payer OTHER ==
[2021-10-01] MEDS ORDERED: DEXTROSE 5%-0.45% SALINE 500 ML IV ONE (10:00)
[2021-10-01 18:21] VITALS: BP 147/82; PULSE 78; TEMP 98.7
[2021-10-01] MEDS ORDERED: PORTA CATH FLUSH 10 ML IVPUSH PRN (18:22)
== END 2021-10-01 12:45 | disposition home or self-care (01) ==
LOC: JONCCHEMO 06:45
PROVIDERS: ATTEND Internal Medicine Hematology & Oncology
PROC: 3E0437Z Introduction of Electrolytic and Water Balance Substance into Central Vein, Percutaneous Approach (ICD-10-PCS; principal; 2021-10-01)
DX: C18.9 Malignant neoplasm of colon, unspecified (principal); Z76.89 Persons encountering health services in other specified circumstances
CPT/HCPCS: 96360; 96361

== ENCOUNTER 2021-10-14 06:27 | Day surgery (SDC) | payer OTHER ==
[2021-10-14 09:19] LABS: BASO % 0.7 % (0-2.0); EOS % 2.4 % (0-4.5); HEMATOCRIT 35.6 % (32.4-45.2); HEMOGLOBIN 12.1 GM/dL (10.7-15.3); MCH 30.4 pg (25.7-33.7); MCHC 33.9 g/dl (32.0-36.0); MEAN CELL VOLUME 89.5 fl (80-96); MEAN PLT VOLUME 7.8 fl (7.5-11.1); MONO % 15.9 % (3.8-10.2); PLATELET COUNT 208 10^3/uL (134-434); RBC 3.98 M/mm3 (3.60-5.2); WHITE BLOOD COUNT 4.5 K/mm3 (4.0-10.0)
[2021-10-14 09:20] LABS: CALCIUM 9.2 mg/dL (8.5-10.1)
[2021-10-14 09:22] LABS: ALBUMIN 3.4 g/dl (3.4-5.0); BLOOD UREA NITROGEN 12.6 mg/dL (7-18); MAGNESIUM 2.5 mg/dL (1.8-2.4)
[2021-10-14 09:24] LABS: CREATININE 0.7 mg/dL (0.55-1.3)
[2021-10-14 09:25] LABS: BILIRUBIN,DIRECT 0.1 mg/dL (0.0-0.2)
[2021-10-14 09:26] LABS: BILIRUBIN,TOTAL 0.6 mg/dL (0.2-1); TOT PROT 7.5 g/dl (6.4-8.2)
[2021-10-14 09:40] VITALS: BP 112/76; PULSE 76; TEMP 98.8
[2021-10-14] MEDS ORDERED: SODIUM CHLORIDE 250 ML IV ONE (10:00)
[2021-10-14] MEDS ORDERED: DEXAMETHASONE SODIUM PHOSPHATE 10 MG in SODIUM CHLORIDE 50 ML IVPB ONE (10:00)
[2021-10-14] MEDS ORDERED: ATROPINE SO4 0.4 MG/1 ML VIAL IVPUSH ONE (10:00)
[2021-10-14] MEDS ORDERED: PALONOSETRON HCL 0.25 MG/5 ML VIAL IVPUSH ONE (10:00)
[2021-10-14] MEDS ORDERED: LEUCOVORIN INJECTION - 852 MG in DEXTROSE 5%-WATER - 250 ML IVPB ONE (10:30)
[2021-10-14] MEDS ORDERED: IRINOTECAN HCL 380 MG in DEXTROSE 5%-WATER - 500 ML IVPB ONE (11:00)
[2021-10-14] MEDS ORDERED: FLUOROURACIL 5,000 MG/100 ML VIAL IVPUSH ONE (12:30)
[2021-10-14] MEDS ORDERED: FLUOROURACIL CP ONE (13:00)
[2021-10-14] MEDS ORDERED: SODIUM CHLORIDE CP ONE (13:00)
[2021-10-14] MEDS ORDERED: PORTA CATH FLUSH 10 ML IVPUSH PRN (16:27)
== END 2021-10-14 14:15 | disposition home or self-care (01) ==
LOC: JONCCHEMO 06:27
PROVIDERS: ATTEND Internal Medicine Hematology & Oncology
DX: Z51.11 Encounter for antineoplastic chemotherapy (principal); C18.6 Malignant neoplasm of descending colon; C78.00 Secondary malignant neoplasm of unspecified lung
CPT/HCPCS: 36415; 80048; 80076; 82378; 83735; 85025; 96366; 96367; 96375; 96411; 96413; G0498; J2469; J9206

== ENCOUNTER 2021-10-16 07:15 | Day surgery (SDC) | payer OTHER ==
[2021-10-16 09:52] VITALS: TEMP 98.5
[2021-10-16] MEDS ORDERED: POTASSIUM CHLORIDE 20 MEQ in DEXTROSE 5%-0.45% SALINE - 500 ML IVPB ONE (10:00)
[2021-10-16] MEDS ORDERED: PORTA CATH FLUSH 10 ML IVPUSH PRN ×2 (14:14→14:23)
[2021-10-16 14:15] VITALS: BP 142/85; PULSE 66
== END 2021-10-16 12:15 | disposition home or self-care (01) ==
LOC: JONCCHEMO 07:15
PROVIDERS: ATTEND Internal Medicine Hematology & Oncology
PROC: 3E043GC Introduction of Other Therapeutic Substance into Central Vein, Percutaneous Approach (ICD-10-PCS; principal; 2021-10-16)
DX: C18.6 Malignant neoplasm of descending colon (principal); C78.00 Secondary malignant neoplasm of unspecified lung; Z76.89 Persons encountering health services in other specified circumstances
CPT/HCPCS: 96365; 96366

== ENCOUNTER 2021-12-15 07:49 | Day surgery (SDC) | payer OTHER ==
[2021-12-15 09:08] LABS: BASO % 0.4 % (0-2.0); EOS % 1.9 % (0-4.5); HEMOGLOBIN 12.7 GM/dL (10.7-15.3); LYMPH % 31.1 % (8-40); MCH 30.7 pg (25.7-33.7); MCHC 34.3 g/dl (32.0-36.0); MEAN CELL VOLUME 89.5 fl (80-96); MONO % 10.3 % (3.8-10.2); NEUT % 56.3 % (42.8-82.8); PLATELET COUNT 295 10^3/uL (134-434); RBC 4.14 M/mm3 (3.60-5.2); WHITE BLOOD COUNT 7.7 K/mm3 (4.0-10.0)
[2021-12-15 09:37] LABS: CALCIUM 8.9 mg/dL (8.5-10.1)
[2021-12-15 09:38] LABS: ALBUMIN 3.4 g/dl (3.4-5.0); BLOOD UREA NITROGEN 14.6 mg/dL (7-18); MAGNESIUM 2.2 mg/dL (1.8-2.4)
[2021-12-15 09:40] LABS: BILIRUBIN,DIRECT 0.2 mg/dL (0.0-0.2)
[2021-12-15 09:41] LABS: CREATININE 0.7 mg/dL (0.55-1.3)
[2021-12-15 09:42] LABS: TOT PROT 7.8 g/dl (6.4-8.2)
[2021-12-15 09:43] LABS: BILIRUBIN,TOTAL 0.5 mg/dL (0.2-1)
[2021-12-15] MEDS ORDERED: ATROPINE SO4 0.4 MG/1 ML VIAL SQ ONE (10:00)
[2021-12-15] MEDS ORDERED: PALONOSETRON HCL 0.25 MG/5 ML VIAL IVPUSH ONE (10:00)
[2021-12-15] MEDS ORDERED: SODIUM CHLORIDE 250 ML IV ONE (10:00)
[2021-12-15] MEDS ORDERED: DEXAMETHASONE SODIUM PHOSPHATE 8 MG in SODIUM CHLORIDE 50 ML IVPB ONE (10:00)
[2021-12-15] MEDS ORDERED: SODIUM CHLORIDE IVPB ONE (10:30)
[2021-12-15] MEDS ORDERED: BEVACIZUMAB AWWB IVPB ONE (10:30)
[2021-12-15] MEDS ORDERED: LEUCOVORIN INJECTION - 848 MG in DEXTROSE 5%-WATER - 250 ML IVPB ONE (12:00)
[2021-12-15] MEDS ORDERED: IRINOTECAN HCL 380 MG in DEXTROSE 5%-WATER - 500 ML IVPB ONE (12:30)
[2021-12-15] MEDS ORDERED: FLUOROURACIL 2,500 MG/50 ML VIAL IVPUSH ONE (14:00)
[2021-12-15] MEDS ORDERED: SODIUM CHLORIDE CP ONE (14:30)
[2021-12-15] MEDS ORDERED: FLUOROURACIL CP ONE (14:30)
[2021-12-15 16:59] VITALS: RESP 18; TEMP 99
[2021-12-15] MEDS ORDERED: PORTA CATH FLUSH 10 ML IVPUSH PRN (17:31)
[2021-12-15 17:32] VITALS: BP 163/88; PULSE 65
== END 2021-12-15 16:30 | disposition home or self-care (01) ==
LOC: JONCCHEMO 07:49
PROVIDERS: ATTEND Internal Medicine Hematology & Oncology
DX: Z51.11 Encounter for antineoplastic chemotherapy (principal); C18.6 Malignant neoplasm of descending colon; C78.00 Secondary malignant neoplasm of unspecified lung
CPT/HCPCS: 36415; 80048; 80076; 82378; 83735; 84156; 85025; 96366; 96367; 96375; 96411; 96413; 96417; G0498; J2469; J9206; Q5107

== ENCOUNTER 2021-12-17 07:07 | Day surgery (SDC) | payer OTHER ==
[2021-12-17] MEDS ORDERED: D5-NS + 20 MEQ KCL - 10 MEQ/500 ML INFUS.BAG IV ONE (10:00)
[2021-12-17 14:22] VITALS: BP 155/84; PULSE 76; RESP 20; TEMP 97.2
[2021-12-17] MEDS ORDERED: PORTA CATH FLUSH 10 ML IVPUSH PRN (14:25)
== END 2021-12-17 14:25 | disposition home or self-care (01) ==
LOC: JONCCHEMO 07:07
PROVIDERS: ATTEND Internal Medicine Hematology & Oncology
PROC: 3E0437Z Introduction of Electrolytic and Water Balance Substance into Central Vein, Percutaneous Approach (ICD-10-PCS; principal; 2021-12-17)
DX: C18.6 Malignant neoplasm of descending colon (principal); C78.00 Secondary malignant neoplasm of unspecified lung; Z76.89 Persons encountering health services in other specified circumstances
CPT/HCPCS: 96360

== ENCOUNTER 2021-12-30 08:14 | Day surgery (SDC) | payer OTHER ==
[2021-12-30] MEDS ORDERED: SODIUM CHLORIDE 250 ML IV ONE (09:00)
[2021-12-30 09:27] LABS: ALBUMIN 3.3 g/dl (3.4-5.0); BLOOD UREA NITROGEN 11.3 mg/dL (7-18); MAGNESIUM 2.4 mg/dL (1.8-2.4)
[2021-12-30 09:30] LABS: BILIRUBIN,DIRECT 0.2 mg/dL (0.0-0.2); CREATININE 0.7 mg/dL (0.55-1.3)
[2021-12-30] MEDS ORDERED: PALONOSETRON HCL 0.25 MG/5 ML VIAL IVPUSH ONE (09:30)
[2021-12-30] MEDS ORDERED: ATROPINE SO4 0.4 MG/1 ML VIAL SQ ONE (09:30)
[2021-12-30] MEDS ORDERED: DEXAMETHASONE SODIUM PHOSPHATE 8 MG in SODIUM CHLORIDE 50 ML IVPB ONE (09:30)
[2021-12-30 09:31] LABS: TOT PROT 7.3 g/dl (6.4-8.2)
[2021-12-30 09:32] LABS: BILIRUBIN,TOTAL 0.6 mg/dL (0.2-1)
[2021-12-30 09:34] LABS: BASO % 0.6 % (0-2.0); EOS % 2.9 % (0-4.5); HEMATOCRIT 38.9 % (32.4-45.2); HEMOGLOBIN 13.3 GM/dL (10.7-15.3); LYMPH % 41.2 % (8-40); MCH 30.9 pg (25.7-33.7); MCHC 34.1 g/dl (32.0-36.0); MEAN CELL VOLUME 90.7 fl (80-96); MEAN PLT VOLUME 7.7 fl (7.5-11.1); NEUT % 45.3 % (42.8-82.8); PLATELET COUNT 235 10^3/uL (134-434); RBC 4.29 M/mm3 (3.60-5.2); RDW 17.4 % (11.6-15.6); WHITE BLOOD COUNT 5.2 K/mm3 (4.0-10.0)
[2021-12-30] MEDS ORDERED: SODIUM CHLORIDE IVPB ONE (10:00)
[2021-12-30] MEDS ORDERED: BEVACIZUMAB AWWB IVPB ONE (10:00)
[2021-12-30] MEDS ORDERED: IRINOTECAN HCL IVPB ONE (11:00)
[2021-12-30] MEDS ORDERED: DEXTROSE 5% IVPB ONE (11:00)
[2021-12-30] MEDS ORDERED: LEUCOVORIN INJECTION - 856 MG in DEXTROSE 5%-WATER - 250 ML IVPB ONE ×2 (11:00→13:00)
[2021-12-30] MEDS ORDERED: WATER IVPB ONE (11:00)
[2021-12-30] MEDS ORDERED: FLUOROURACIL 2,500 MG/50 ML VIAL IVPUSH ONE (12:30)
[2021-12-30] MEDS ORDERED: SODIUM CHLORIDE CP ONE (12:45)
[2021-12-30] MEDS ORDERED: FLUOROURACIL CP ONE (12:45)
[2021-12-30 17:22] VITALS: RESP 18; TEMP 98.7
[2021-12-30] MEDS ORDERED: PORTA CATH FLUSH 10 ML IVPUSH PRN (17:33)
[2021-12-30 17:41] VITALS: BP 157/79; PULSE 79
== END 2021-12-30 16:15 | disposition home or self-care (01) ==
LOC: JONCCHEMO 08:14
PROVIDERS: ATTEND Internal Medicine Hematology & Oncology
DX: Z51.11 Encounter for antineoplastic chemotherapy (principal); C18.6 Malignant neoplasm of descending colon; C78.00 Secondary malignant neoplasm of unspecified lung
CPT/HCPCS: 36415; 80048; 80076; 83735; 84156; 85025; 96366; 96367; 96375; 96411; 96413; 96417; G0498; J2469; J9206; Q5107

== ENCOUNTER 2022-01-01 07:23 | Day surgery (SDC) | payer OTHER ==
[2022-01-01 09:53] VITALS: RESP 18; TEMP 98.1
[2022-01-01] MEDS ORDERED: D5-NS + 40 MEQ KCL - 20 MEQ/500 ML INFUS.BAG IV ONE (10:00)
[2022-01-01 15:51] VITALS: BP 163/88; PULSE 71
[2022-01-01] MEDS ORDERED: PORTA CATH FLUSH 10 ML IVPUSH PRN (15:51)
== END 2022-01-01 15:00 | disposition home or self-care (01) ==
LOC: JONCCHEMO 07:23
PROVIDERS: ATTEND Internal Medicine Hematology & Oncology
PROC: 3E0437Z Introduction of Electrolytic and Water Balance Substance into Central Vein, Percutaneous Approach (ICD-10-PCS; principal; 2022-01-01)
DX: C18.6 Malignant neoplasm of descending colon (principal); C78.00 Secondary malignant neoplasm of unspecified lung; Z76.89 Persons encountering health services in other specified circumstances
CPT/HCPCS: 96360

== ENCOUNTER 2022-01-12 07:57 | Day surgery (SDC) | payer OTHER ==
[2022-01-12] MEDS ORDERED: SODIUM CHLORIDE 250 ML IV ONE (09:00)
[2022-01-12 09:03] LABS: BASO % 0.5 % (0-2.0); HEMATOCRIT 39.1 % (32.4-45.2); HEMOGLOBIN 13.3 GM/dL (10.7-15.3); LYMPH % 41.1 % (8-40); MCH 30.6 pg (25.7-33.7); MEAN PLT VOLUME 7.3 fl (7.5-11.1); MONO % 9.1 % (3.8-10.2); NEUT % 47.3 % (42.8-82.8); PLATELET COUNT 206 10^3/uL (134-434); RBC 4.35 M/mm3 (3.60-5.2); WHITE BLOOD COUNT 4.7 K/mm3 (4.0-10.0)
[2022-01-12 09:06] LABS: ALBUMIN 3.2 g/dl (3.4-5.0); BLOOD UREA NITROGEN 12.1 mg/dL (7-18); CALCIUM 8.8 mg/dL (8.5-10.1); MAGNESIUM 2.3 mg/dL (1.8-2.4)
[2022-01-12 09:09] LABS: BILIRUBIN,DIRECT 0.2 mg/dL (0.0-0.2); CREATININE 0.7 mg/dL (0.55-1.3)
[2022-01-12 09:11] LABS: BILIRUBIN,TOTAL 0.6 mg/dL (0.2-1); TOT PROT 7.4 g/dl (6.4-8.2)
[2022-01-12] MEDS ORDERED: DEXAMETHASONE SODIUM PHOSPHATE 8 MG in SODIUM CHLORIDE 50 ML IVPB ONE (09:30)
[2022-01-12] MEDS ORDERED: ATROPINE SO4 0.4 MG/1 ML VIAL SQ ONE (09:30)
[2022-01-12] MEDS ORDERED: PALONOSETRON HCL 0.25 MG/5 ML VIAL IVPUSH ONE (09:30)
[2022-01-12] MEDS ORDERED: BEVACIZUMAB AWWB IVPB ONE (10:00)
[2022-01-12] MEDS ORDERED: SODIUM CHLORIDE IVPB ONE (10:00)
[2022-01-12] MEDS ORDERED: IRINOTECAN HCL IVPB ONE (10:30)
[2022-01-12] MEDS ORDERED: DEXTROSE 5% IVPB ONE (10:30)
[2022-01-12] MEDS ORDERED: WATER IVPB ONE (10:30)
[2022-01-12] MEDS ORDERED: LEUCOVORIN INJECTION - 860 MG in DEXTROSE 5%-WATER - 250 ML IVPB ONE (10:30)
[2022-01-12] MEDS ORDERED: FLUOROURACIL 2,500 MG/50 ML VIAL IVPUSH ONE (12:30)
[2022-01-12] MEDS ORDERED: SODIUM CHLORIDE CP ONE (12:45)
[2022-01-12] MEDS ORDERED: FLUOROURACIL CP ONE (12:45)
[2022-01-12 17:05] VITALS: RESP 18
[2022-01-12 17:19] VITALS: BP 138/85; PULSE 75
[2022-01-12] MEDS ORDERED: PORTA CATH FLUSH 10 ML IVPUSH PRN (17:19)
[2022-01-12 17:23] VITALS: TEMP 98.6
== END 2022-01-12 14:40 | disposition home or self-care (01) ==
LOC: JONCCHEMO 07:57
PROVIDERS: ATTEND Internal Medicine Hematology & Oncology
PROC: 3E0437Z Introduction of Electrolytic and Water Balance Substance into Central Vein, Percutaneous Approach (ICD-10-PCS; principal; 2022-01-12)
DX: C18.6 Malignant neoplasm of descending colon (principal); C78.00 Secondary malignant neoplasm of unspecified lung; Z76.89 Persons encountering health services in other specified circumstances
CPT/HCPCS: 36415; 80048; 80076; 83735; 84156; 85025; 96360; G0498; J2469; J9206; Q5107

== ENCOUNTER 2022-01-14 09:48 | Day surgery (SDC) | payer OTHER ==
[2022-01-14] MEDS ORDERED: D5-NS + 40 MEQ KCL - 20 MEQ/500 ML INFUS.BAG IV ONE (10:00)
[2022-01-14 16:40] VITALS: BP 159/87; PULSE 75; RESP 20; TEMP 98.9
[2022-01-14] MEDS ORDERED: PORTA CATH FLUSH 10 ML IVPUSH PRN (16:40)
== END 2022-01-14 13:00 | disposition home or self-care (01) ==
LOC: JONCCHEMO 09:48
PROVIDERS: ATTEND Internal Medicine Hematology & Oncology
PROC: 3E0437Z Introduction of Electrolytic and Water Balance Substance into Central Vein, Percutaneous Approach (ICD-10-PCS; principal; 2022-01-14)
DX: Z76.89 Persons encountering health services in other specified circumstances (principal); C18.6 Malignant neoplasm of descending colon; C78.00 Secondary malignant neoplasm of unspecified lung
CPT/HCPCS: 96360; 96361

== ENCOUNTER 2022-01-26 08:02 | Day surgery (SDC) | payer OTHER ==
[2022-01-26 09:10] LABS: BASO % 0.8 % (0-2.0); EOS % 1.6 % (0-4.5); HEMATOCRIT 40.4 % (32.4-45.2); HEMOGLOBIN 13.6 GM/dL (10.7-15.3); LYMPH % 42.9 % (8-40); MCHC 33.6 g/dl (32.0-36.0); MEAN CELL VOLUME 89.3 fl (80-96); MEAN PLT VOLUME 7.4 fl (7.5-11.1); MONO % 11.8 % (3.8-10.2); NEUT % 42.9 % (42.8-82.8); PLATELET COUNT 216 10^3/uL (134-434); RBC 4.52 M/mm3 (3.60-5.2); WHITE BLOOD COUNT 4.8 K/mm3 (4.0-10.0)
[2022-01-26 09:29] LABS: CALCIUM 8.9 mg/dL (8.5-10.1)
[2022-01-26] MEDS ORDERED: SODIUM CHLORIDE 250 ML IV ONE (09:30)
[2022-01-26 09:32] LABS: ALBUMIN 3.4 g/dl (3.4-5.0); BLOOD UREA NITROGEN 11.9 mg/dL (7-18); MAGNESIUM 2.1 mg/dL (1.8-2.4)
[2022-01-26 09:33] LABS: CREATININE 0.7 mg/dL (0.55-1.3)
[2022-01-26 09:35] LABS: BILIRUBIN,TOTAL 0.8 mg/dL (0.2-1); TOT PROT 7.8 g/dl (6.4-8.2)
[2022-01-26] MEDS ORDERED: PALONOSETRON HCL 0.25 MG/5 ML VIAL IVPUSH ONE (10:00)
[2022-01-26] MEDS ORDERED: DEXAMETHASONE SODIUM PHOSPHATE 8 MG in SODIUM CHLORIDE 50 ML IVPB ONE (10:00)
[2022-01-26] MEDS ORDERED: ATROPINE SO4 0.4 MG/1 ML VIAL SQ ONE (10:00)
[2022-01-26] MEDS ORDERED: SODIUM CHLORIDE IVPB ONE (10:30)
[2022-01-26] MEDS ORDERED: BEVACIZUMAB AWWB IVPB ONE (10:30)
[2022-01-26] MEDS ORDERED: LEUCOVORIN INJECTION - 860 MG in DEXTROSE 5%-WATER - 250 ML IVPB ONE (11:00)
[2022-01-26] MEDS ORDERED: WATER IVPB ONE (11:30)
[2022-01-26] MEDS ORDERED: DEXTROSE 5% IVPB ONE (11:30)
[2022-01-26] MEDS ORDERED: IRINOTECAN HCL IVPB ONE (11:30)
[2022-01-26] MEDS ORDERED: SODIUM CHLORIDE CP ONE (13:00)
[2022-01-26] MEDS ORDERED: FLUOROURACIL CP ONE (13:00)
[2022-01-26] MEDS ORDERED: FLUOROURACIL 5,000 MG/100 ML VIAL IVPUSH ONE (13:00)
[2022-01-26 15:56] VITALS: RESP 18; TEMP 98.4
[2022-01-26 16:33] VITALS: BP 162/89; PULSE 75
[2022-01-26] MEDS ORDERED: PORTA CATH FLUSH 10 ML IVPUSH PRN (16:33)
== END 2022-01-26 16:00 | disposition home or self-care (01) ==
LOC: JONCCHEMO 08:02
PROVIDERS: ATTEND Internal Medicine Hematology & Oncology
DX: Z51.11 Encounter for antineoplastic chemotherapy (principal); C19 Malignant neoplasm of rectosigmoid junction; C18.6 Malignant neoplasm of descending colon; C78.00 Secondary malignant neoplasm of unspecified lung
CPT/HCPCS: 36415; 80053; 83735; 84156; 85025; 96366; 96367; 96375; 96411; 96413; 96415; 96417; G0498; J2469; J9206; Q5107

== ENCOUNTER 2022-01-28 08:40 | Day surgery (SDC) | payer OTHER ==
[2022-01-28] MEDS ORDERED: D5-1/2NS+20 MEQ KCL - 10 MEQ/500 ML INFUS.BAG IV ONE (10:00)
[2022-01-28 16:17] VITALS: TEMP 98.8
[2022-01-28 16:28] VITALS: BP 144/79; PULSE 75; RESP 18
[2022-01-28] MEDS ORDERED: PORTA CATH FLUSH 10 ML IVPUSH PRN (16:28)
== END 2022-01-28 15:00 | disposition home or self-care (01) ==
LOC: JONCCHEMO 08:40
PROVIDERS: ATTEND Internal Medicine Hematology & Oncology
PROC: 3E0437Z Introduction of Electrolytic and Water Balance Substance into Central Vein, Percutaneous Approach (ICD-10-PCS; principal; 2022-01-28)
DX: C19 Malignant neoplasm of rectosigmoid junction (principal); C18.6 Malignant neoplasm of descending colon; C78.00 Secondary malignant neoplasm of unspecified lung; Z76.89 Persons encountering health services in other specified circumstances
CPT/HCPCS: 96360; 96361

== ENCOUNTER 2022-03-09 07:41 | Day surgery (SDC) | payer OTHER ==
[2022-03-09 08:42] LABS: BASO % 0.5 % (0-2.0); EOS % 3.2 % (0-4.5); HEMATOCRIT 37.5 % (32.4-45.2); HEMOGLOBIN 12.8 GM/dL (10.7-15.3); MCHC 34.2 g/dl (32.0-36.0); MEAN CELL VOLUME 90.8 fl (80-96); MEAN PLT VOLUME 7.8 fl (7.5-11.1); MONO % 11.3 % (3.8-10.2); PLATELET COUNT 303 10^3/uL (134-434); RBC 4.13 M/mm3 (3.60-5.2); RDW 18.2 % (11.6-15.6); WHITE BLOOD COUNT 7.6 K/mm3 (4.0-10.0)
[2022-03-09] MEDS ORDERED: SODIUM CHLORIDE 250 ML IV ONE (09:00)
[2022-03-09 09:04] LABS: ALBUMIN 3.3 g/dl (3.4-5.0); BLOOD UREA NITROGEN 13.7 mg/dL (7-18); CALCIUM 9.2 mg/dL (8.5-10.1); MAGNESIUM 2.1 mg/dL (1.8-2.4)
[2022-03-09 09:07] LABS: BILIRUBIN,DIRECT 0.2 mg/dL (0.0-0.2); CREATININE 0.7 mg/dL (0.55-1.3)
[2022-03-09 09:09] LABS: BILIRUBIN,TOTAL 0.5 mg/dL (0.2-1); TOT PROT 7.4 g/dl (6.4-8.2)
[2022-03-09] MEDS ORDERED: DEXAMETHASONE SODIUM PHOSPHATE 8 MG in SODIUM CHLORIDE 50 ML IVPB ONE (09:30)
[2022-03-09] MEDS ORDERED: PALONOSETRON HCL 0.25 MG/5 ML VIAL IVPUSH ONE (09:30)
[2022-03-09] MEDS ORDERED: SODIUM CHLORIDE IVPB ONE (10:00)
[2022-03-09] MEDS ORDERED: BEVACIZUMAB AWWB IVPB ONE (10:00)
[2022-03-09] MEDS ORDERED: ATROPINE SO4 0.4 MG/1 ML VIAL SQ ONE (10:15)
[2022-03-09] MEDS ORDERED: ATROPINE SO4 0.4 MG/1 ML VIAL IVPUSH ONE (10:15)
[2022-03-09] MEDS ORDERED: IRINOTECAN HCL 380 MG in DEXTROSE 5%-WATER - 500 ML IVPB ONE (10:30)
[2022-03-09 15:17] VITALS: BP 150/82; PULSE 83; RESP 18; TEMP 98.3
[2022-03-09] MEDS ORDERED: PORTA CATH FLUSH 10 ML IVPUSH PRN (15:17)
== END 2022-03-09 13:50 | disposition home or self-care (01) ==
LOC: JONCCHEMO 07:41
PROVIDERS: ATTEND Internal Medicine Hematology & Oncology
DX: Z51.11 Encounter for antineoplastic chemotherapy (principal); C19 Malignant neoplasm of rectosigmoid junction; C18.6 Malignant neoplasm of descending colon; C78.00 Secondary malignant neoplasm of unspecified lung; Z76.89 Persons encountering health services in other specified circumstances
CPT/HCPCS: 36415; 80048; 80076; 82378; 83735; 84156; 85025; 96361; 96375; 96413; J2469; J9206; Q5107

== ENCOUNTER 2022-03-23 07:32 | Day surgery (SDC) | payer OTHER ==
[2022-03-23 08:36] LABS: BASO % 0.7 % (0-2.0); EOS % 3.2 % (0-4.5); HEMATOCRIT 38.4 % (32.4-45.2); HEMOGLOBIN 12.5 GM/dL (10.7-15.3); MCH 29.5 pg (25.7-33.7); MCHC 32.5 g/dl (32.0-36.0); MEAN CELL VOLUME 90.9 fl (80-96); MEAN PLT VOLUME 7.8 fl (7.5-11.1); MONO % 9.3 % (3.8-10.2); NEUT % 51.8 % (42.8-82.8); PLATELET COUNT 311 10^3/uL (134-434); RBC 4.23 M/mm3 (3.60-5.2); RDW 18.2 % (11.6-15.6); WHITE BLOOD COUNT 6.6 K/mm3 (4.0-10.0)
[2022-03-23 09:03] LABS: CALCIUM 8.9 mg/dL (8.5-10.1)
[2022-03-23 09:04] LABS: ALBUMIN 3.2 g/dl (3.4-5.0); BLOOD UREA NITROGEN 10.2 mg/dL (7-18); MAGNESIUM 2.2 mg/dL (1.8-2.4)
[2022-03-23 09:06] LABS: BILIRUBIN,DIRECT 0.1 mg/dL (0.0-0.2)
[2022-03-23 09:07] LABS: CREATININE 0.7 mg/dL (0.55-1.3)
[2022-03-23 09:08] LABS: BILIRUBIN,TOTAL 0.4 mg/dL (0.2-1); TOT PROT 7.4 g/dl (6.4-8.2)
[2022-03-23] MEDS ORDERED: SODIUM CHLORIDE 250 ML IV ONE (09:30)
[2022-03-23] MEDS ORDERED: ATROPINE SO4 0.4 MG/1 ML VIAL SQ ONE (10:00)
[2022-03-23] MEDS ORDERED: PALONOSETRON HCL 0.25 MG/5 ML VIAL IVPUSH ONE (10:00)
[2022-03-23] MEDS ORDERED: DEXAMETHASONE SODIUM PHOSPHATE 8 MG in SODIUM CHLORIDE 50 ML IVPB ONE (10:00)
[2022-03-23] MEDS ORDERED: SODIUM CHLORIDE IVPB ONE (10:30)
[2022-03-23] MEDS ORDERED: BEVACIZUMAB AWWB IVPB ONE (10:30)
[2022-03-23] MEDS ORDERED: IRINOTECAN HCL 380 MG in DEXTROSE 5%-WATER - 500 ML IVPB ONE (11:00)
[2022-03-23] MEDS ORDERED: PORTA CATH FLUSH 10 ML IVPUSH PRN (14:54)
[2022-03-23 14:55] VITALS: BP 146/92; PULSE 85; RESP 20; TEMP 98.9
== END 2022-03-23 15:02 | disposition home or self-care (01) ==
LOC: JONCCHEMO 07:32
PROVIDERS: ATTEND Internal Medicine Hematology & Oncology
DX: Z51.11 Encounter for antineoplastic chemotherapy (principal); C19 Malignant neoplasm of rectosigmoid junction; C18.6 Malignant neoplasm of descending colon; C78.00 Secondary malignant neoplasm of unspecified lung
CPT/HCPCS: 36415; 80048; 80076; 83735; 84156; 85025; 96367; 96375; 96413; 96417; J2469; J9206; Q5107

== ENCOUNTER 2022-05-21 07:37 | Day surgery (SDC) | payer OTHER ==
[2022-05-21] MEDS ORDERED: SODIUM CHLORIDE 250 ML IV ONE (09:00)
[2022-05-21] MEDS ORDERED: DEXAMETHASONE SODIUM PHOSPHATE 8 MG in SODIUM CHLORIDE 50 ML IVPB ONE (09:30)
[2022-05-21] MEDS ORDERED: PALONOSETRON HCL 0.25 MG/5 ML VIAL IVPUSH ONE (09:30)
[2022-05-21] MEDS ORDERED: SODIUM CHLORIDE IVPB ONE (10:00)
[2022-05-21] MEDS ORDERED: BEVACIZUMAB AWWB IVPB ONE (10:00)
[2022-05-21] MEDS ORDERED: WATER IVPB ONE (10:30)
[2022-05-21] MEDS ORDERED: IRINOTECAN HCL IVPB ONE (10:30)
[2022-05-21] MEDS ORDERED: DEXTROSE 5% IVPB ONE (10:30)
[2022-05-21] MEDS ORDERED: ATROPINE SO4 0.4 MG/1 ML VIAL IVPUSH ONE (11:30)
[2022-05-21 17:00] VITALS: TEMP 98.3
[2022-05-21 17:17] VITALS: BP 142/77; PULSE 70; RESP 18
[2022-05-21] MEDS ORDERED: PORTA CATH FLUSH 10 ML IVPUSH PRN (17:17)
== END 2022-05-21 14:00 | disposition home or self-care (01) ==
LOC: JONCCHEMO 07:37
PROVIDERS: ATTEND Internal Medicine Hematology & Oncology
DX: Z51.11 Encounter for antineoplastic chemotherapy (principal); C19 Malignant neoplasm of rectosigmoid junction; C18.6 Malignant neoplasm of descending colon; C78.00 Secondary malignant neoplasm of unspecified lung
CPT/HCPCS: 84156; 96375; 96413; 96417; J2469; J9206; Q5107

== ENCOUNTER 2022-06-11 08:05 | Day surgery (SDC) | payer OTHER ==
[~2022-06-11 08:05] MED LIST changes: +ATROPINE SO4 0.4 MG/1 ML VIAL SQ ONE; +BEVACIZUMAB AWWB IVPB ONE; +DEXAMETHASONE SODIUM PHOSPHATE 8 MG in SODIUM CHLORIDE 50 ML IVPB ONE; +IRINOTECAN HCL 380 MG in DEXTROSE 5%-WATER - 500 ML IVPB ONE; -LIDOCAINE 2.5%/PRILOCAINE 2.5% 30 GRAM TUBE TP ONE; +PALONOSETRON HCL 0.25 MG/5 ML VIAL IVPUSH ONE; +SODIUM CHLORIDE 250 ML IV ONE; +SODIUM CHLORIDE IVPB ONE
[2022-06-11 09:21] LABS: WHITE BLOOD COUNT 9.1 K/mm3 (4.0-10.0)
[2022-06-11 09:22] LABS: HEMATOCRIT 37.9 % (32.4-45.2); HEMOGLOBIN 12.8 GM/dL (10.7-15.3); MCH 30.5 pg (25.7-33.7); MCHC 33.8 g/dl (32.0-36.0); MEAN CELL VOLUME 90.4 fl (80-96); MEAN PLT VOLUME 7.7 fl (7.5-11.1); PLATELET COUNT 385 10^3/uL (134-434); RBC 4.19 M/mm3 (3.60-5.2); RDW 17.4 % (11.6-15.6)
[2022-06-11 09:33] LABS: BLOOD UREA NITROGEN 15.8 mg/dL (7-18); CALCIUM 9.3 mg/dL (8.5-10.1)
[2022-06-11 09:34] LABS: ALBUMIN 3.3 g/dl (3.4-5.0); MAGNESIUM 2.2 mg/dL (1.8-2.4)
[2022-06-11 09:36] LABS: BILIRUBIN,DIRECT 0.1 mg/dL (0.0-0.2)
[2022-06-11 09:38] LABS: BILIRUBIN,TOTAL 0.3 mg/dL (0.2-1); CREATININE 0.7 mg/dL (0.55-1.3); TOT PROT 7.6 g/dl (6.4-8.2)
[2022-06-11 10:05] LABS: ANISOCYTOSIS 1+; MACROCYTOSIS 0; OVALOCYTE 1+
[2022-06-11] MEDS ORDERED: SODIUM CHLORIDE 250 ML IV ONE (10:15)
[2022-06-11] MEDS ORDERED: DEXAMETHASONE SODIUM PHOSPHATE 8 MG in SODIUM CHLORIDE 50 ML IVPB ONE (11:00)
[2022-06-11] MEDS ORDERED: ATROPINE SO4 0.4 MG/1 ML VIAL SQ ONE (11:00)
[2022-06-11] MEDS ORDERED: PALONOSETRON HCL 0.25 MG/5 ML VIAL IVPUSH ONE (11:00)
[2022-06-11] MEDS ORDERED: SODIUM CHLORIDE IVPB ONE (11:30)
[2022-06-11] MEDS ORDERED: BEVACIZUMAB AWWB IVPB ONE (11:30)
[2022-06-11] MEDS ORDERED: IRINOTECAN HCL 380 MG in DEXTROSE 5%-WATER - 500 ML IVPB ONE (12:00)
[2022-06-11 14:55] VITALS: BP 144/77; PULSE 78; RESP 20; TEMP 98
[2022-06-11] MEDS ORDERED: PORTA CATH FLUSH 10 ML IVPUSH PRN (14:55)
== END 2022-06-11 14:57 | disposition home or self-care (01) ==
LOC: JONCCHEMO 08:05
PROVIDERS: ATTEND Internal Medicine Hematology & Oncology
DX: Z51.11 Encounter for antineoplastic chemotherapy (principal); C18.6 Malignant neoplasm of descending colon; C78.00 Secondary malignant neoplasm of unspecified lung; C78.7 Secondary malignant neoplasm of liver and intrahepatic bile duct
CPT/HCPCS: 36415; 80048; 80076; 83735; 84156; 85025; 96367; 96375; 96413; 96417; J2469; J9206; Q5107